=== PATIENT | female | born 1935 | race Caucasian/White ===

== ENCOUNTER 2018-07-11 19:40 | Inpatient (IN) | payer MEDICARE, MEDICAID | END 2018-07-15 13:10 | disposition E | LOC: ER 19:40 → PCU 3S 07-12 03:26 → ED HOLD 22:53 | DX: J18.9 Pneumonia, unspecified organism (principal); J96.00 Acute respiratory failure, unspecified whether with hypoxia or hypercapnia; I50.9 Heart failure, unspecified; I11.0 Hypertensive heart disease with heart failure ==